=== PATIENT | female | born 1990 | race Caucasian/White ===

== ENCOUNTER 2024-01-05 18:24 | Inpatient (IN) | payer BC ==
[2024-01-05] MEDS: Lactated Ringer's 1,000 ML IV SCH (19:35)
[2024-01-05] MEDS ORDERED: Methylergonovine 0.2 MG/ML VIAL IM PRN (20:10)
[2024-01-05] MEDS ORDERED: Diphenoxylate HCl/Atropine Tablet PO PRN (20:10)
[2024-01-05] MEDS ORDERED: Lidocaine 1% (PF) 30 ML VIAL SC PRN (20:10)
[2024-01-05] MEDS ORDERED: Carboprost 250 MCG/ML AMP IM PRN (20:10)
[2024-01-05] MEDS ORDERED: Acetaminophen 500 MG TAB PO PRN (20:10)
[2024-01-05] MEDS ORDERED: Misoprostol 200 MCG TAB PR PRN (20:10)
[2024-01-05] MEDS ORDERED: Tranexamic Acid 1,000 MG/10 ML VIAL IVP PRN (20:10)
[2024-01-05] MEDS ORDERED: Promethazine HCl 25 MG/ML VIAL IM PRN ×2 (20:10→22:40)
[2024-01-05 20:12] VITALS: BMI 41.5
[2024-01-05] MEDS ORDERED: Misoprostol 100 MCG TAB VAG SCH (20:15)
[2024-01-05] MEDS ORDERED: Oxytocin 30 units/NS 500 ML 500 ML IV SCH ×2 (20:15)
[2024-01-05 20:31] LABS: Hematocrit 32.1 % (34.9-44.5); Hemoglobin 10.9 g/dL (12.0-15.5); Mean Corpuscular Hemoglobin 29.1 pg (27.0-33.0); Mean Corpuscular Volume 85.6 fL (81.6-98.3); Mean Platelet Volume 11.8 fL (7.4-10.4); Platelet Count 265 10x3/uL (150-450); RBC Distribution Width 14.7 % (11.5-14.5); Red Blood Cell (RBC) Count 3.75 10x6/uL (3.90-5.03); White Blood Cell (WBC) Count 10.7 10x3/uL (3.5-10.5)
[2024-01-05 21:01] LABS: HBsAg Index 0.15 S/CO (0-0.99); Hep B Surf Ag - L&D Non-Reactive S/CO (NonReactive)
[2024-01-05 21:02] LABS: Syphilis Antibody Nonreactive (Nonreactive); Syphilis Antibody Index 0.05 S/CO (<1.00 Non-Reactive)
[2024-01-05 21:37] LABS: ALT (SGPT) 9 U/L (8-55); AST (SGOT) 14 U/L (5-34); Albumin 2.4 g/dL (3.5-5.0); Alkaline Phosphatase 134 U/L (40-110); Anion Gap 15 mmol/L (10-20); BUN (Urea Nitrogen) 9 mg/dL (7.0-18.7); Bilirubin, Total 0.2 mg/dL (0.2-1.2); Calc. Creatinine Clearance 289 mL/min (70-130); Calcium 9.5 mg/dL (7.8-10.44); Carbon Dioxide 17 mmol/L (22-29); Chloride 107 mmol/L (98-107); Estimated GFR 123; Globulin 4.2 g/dL (2.4-3.5); Glucose 85 mg/dL (70-105); Potassium 3.8 mmol/L (3.5-5.1); Protein, Total 6.6 g/dL (6.0-8.3); Sodium 135 mmol/L (136-145)
[2024-01-05] MEDS: hydrALAZINE 20 MG/ML VIAL SLOW IVP PRN (21:49)
[2024-01-05] MEDS: Magnesium Sulfate 20 gm/500 ml 20 GM/500 ML BAG ONE (21:53)
[2024-01-05 22:03] LABS: Creatinine, Urine 146.5 mg/dL (47-110)
[2024-01-05] MEDS ORDERED: Calcium Gluc 4.6 MEQ/10 ML (100 MG/ML) SLOW IVP PRN ×2 (22:07→22:16)
[2024-01-05] MEDS ORDERED: Lorazepam 2 MG/ML VIAL SLOW IVP PRN ×2 (22:07→22:16)
[2024-01-05] MEDS ORDERED: Labetalol HCl 100 MG/20 ML VIAL SLOW IVP PRN (22:07)
[2024-01-05] MEDS ORDERED: NIFEdipine 10 MG CAP PO PRN ×2 (22:16)
[2024-01-05] MEDS: fentaNYL/Ropivacaine Epidural 100 ML ONE (22:21)
[2024-01-05] MEDS ORDERED: ePHEDrine Sulfate 50 MG/10 ML VIAL SLOW IVP PRN (22:40)
[2024-01-05] MEDS ORDERED: Moisturizing Cream (Eucerin) 113 GM JAR TOP PRN (22:40)
[2024-01-05] MEDS ORDERED: Acetaminophen 325 MG TAB PO PRN (22:40)
[2024-01-05] MEDS ORDERED: Ondansetron PF 4 MG/2 ML Vial IVP PRN (22:40)
[2024-01-05] MEDS ORDERED: Lactated Ringer's 500 ML IV PRN (22:40)
[2024-01-05] MEDS ORDERED: diphenhydrAMINE 50 MG/ML VIAL IVP PRN (22:40)
[2024-01-05] MEDS ORDERED: Naloxone HCl 0.4 mg/ml Vial IVP PRN ×2 (22:40)
[2024-01-05] MEDS ORDERED: Communication Order-Pharmacy FS SCH (22:45)
[2024-01-06] MEDS: Labetalol HCl 100 MG/20 ML VIAL SLOW IVP PRN (02:39)
[2024-01-06] MEDS: Oxytocin 30 units/NS 500 ML 500 ML IV SCH (04:07)
[2024-01-06] MEDS: Magnesium Sulfate 20 gm/500 ml 20 GM/500 ML BAG IVPB SCH (06:08)
[2024-01-06] MEDS: fentaNYL 2 mcg/Ropivacaine 0.2% Epidural 100 ML CADD EPIDURAL SCH (06:23)
[2024-01-06] MEDS ORDERED: Bicitra 30 ML UDCUP PO PRN (09:08)
[2024-01-06] MEDS ORDERED: Famotidine/PF 20 mg/2ml Vial SLOW IVP PRN (09:08)
[2024-01-06] MEDS ORDERED: Azithromycin 500 MG in Sodium Chloride 0.9% 250 ML 250 ML IVPB SCH (09:15)
[2024-01-06] MEDS: Ondansetron PF 4 MG/2 ML Vial IVP PRN (09:15)
[2024-01-06] MEDS: CEFAZOLIN 3 GM in Sodium Chloride 0.9% 100 ML IVPB SCH (09:20)
[2024-01-06] MEDS ORDERED: Naloxone HCl 0.4 mg/ml Vial IVP PRN ×2 (11:47)
[2024-01-06] MEDS ORDERED: diphenhydrAMINE 50 MG/ML VIAL IVP PRN (11:47)
[2024-01-06] MEDS ORDERED: Promethazine HCl 25 MG/ML VIAL IM PRN (11:47)
[2024-01-06] MEDS ORDERED: HYDROmorphone 0.5 MG/0.5 ML SYRINGE SLOW IVP PRN (11:47)
[2024-01-06] MEDS ORDERED: Moisturizing Cream (Eucerin) 113 GM JAR TOP PRN (11:47)
[2024-01-06] MEDS ORDERED: Naloxone HCl 0.4 mg/ml Vial IV PRN (11:47)
[2024-01-06] MEDS ORDERED: fentaNYL 50 mcg/mL 1 mL Vial SLOW IVP PRN (11:47)
[2024-01-06] MEDS ORDERED: Ondansetron PF 4 MG/2 ML Vial IVP PRN ×2 (11:47)
[2024-01-06] MEDS ORDERED: Meperidine HCl/PF 25 MG (1 mL) VIAL SLOW IVP PRN (11:47)
[2024-01-06] MEDS ORDERED: Ketorolac Tromethamine 30 MG (1 mL) VIAL IVP SCH (12:00)
[2024-01-06] MEDS ORDERED: Communication Order-Pharmacy FS SCH (12:00)
[2024-01-06] MEDS: Simethicone Chewable 80 MG TAB PO PRN (15:15)
[2024-01-06] MEDS: Ketorolac Tromethamine 30 MG (1 mL) VIAL IVP PRN (15:15)
[2024-01-06] MEDS: Misoprostol 100 MCG TAB VAG SCH (19:14)
[2024-01-06] MEDS: Lactated Ringer's 500 ML IV SCH (19:15)
[2024-01-06] MEDS: hydrALAZINE 20 MG/ML VIAL SLOW IVP SCH (19:15)
[2024-01-06] MEDS: CEFAZOLIN 2 GM VIAL ONE (19:15)
[2024-01-06] MEDS: Azithromycin 500 MG VIAL ONE (19:15)
[2024-01-06] MEDS: CEFAZOLIN 1 GM VIAL ONE (19:15)
[2024-01-06] MEDS: Dexmedetomidine 200 MCG/2 ML VIAL ONE (19:16)
[2024-01-06] MEDS: fentaNYL 50 mcg/mL 1 mL Vial ONE (19:16)
[2024-01-06] MEDS: PROPOFOL 0 ML ONE (19:16)
[2024-01-06] MEDS: Acetaminophen 325 MG TAB PO SCH (19:16)
[2024-01-06] MEDS: Morphine PF 10 MG/10 ML VIAL ONE (19:16)
[2024-01-06] MEDS: Oxytocin 10 UNITS/ML VIAL ONE (19:16)
[2024-01-06] MEDS: Ibuprofen 800 MG TAB PO SCH (19:17)
[2024-01-06] MEDS: Docusate 100 MG CAP PO SCH (20:41)
[2024-01-07] MEDS: Boostrix 0.5 ML (Tdap) VIAL (>/=7 yrs of age) IM ONE (02:48)
[2024-01-07 04:12] LABS: Hematocrit 26.6 % (34.9-44.5); Hemoglobin 8.8 g/dL (12.0-15.5); Mean Corpuscular HGB CONC 33.1 g/dL (32.0-36.0); Mean Corpuscular Hemoglobin 28.9 pg (27.0-33.0); Mean Corpuscular Volume 87.2 fL (81.6-98.3); Mean Platelet Volume 11.1 fL (7.4-10.4); Platelet Count 224 10x3/uL (150-450); RBC Distribution Width 15.5 % (11.5-14.5); Red Blood Cell (RBC) Count 3.05 10x6/uL (3.90-5.03); White Blood Cell (WBC) Count 9.7 10x3/uL (3.5-10.5)
[2024-01-07] MEDS: Ferrous Sulfate 325 MG TAB PO SCH (07:15)
[2024-01-07] MEDS: HYDROcodone/Acetaminophen 10/325 mg Tablet PO PRN (07:15)
[2024-01-07] MEDS ORDERED: hydrALAZINE 20 MG/ML VIAL SLOW IVP PRN (09:25)
[2024-01-07] MEDS ORDERED: Lanolin Ointment 7 GM TUBE TOP PRN (09:25)
[2024-01-07] MEDS: Enoxaparin 40 MG (0.4 mL) SYRINGE SC SCH (10:38)
[2024-01-07] MEDS: Prenatal Vitamin 1 TAB PO SCH ×2 (10:39)
[2024-01-07] MEDS: HYDROcodone/Acetaminophen 5/325 mg Tablet PO PRN (14:08)
[2024-01-07] MEDS: Ibuprofen 800 MG TAB PO SCH (16:11)
[2024-01-08 04:52] LABS: Hematocrit 25.9 % (34.9-44.5); Hemoglobin 8.9 g/dL (12.0-15.5)
[2024-01-09 09:30] VITALS: BP 129/80; TEMP 98.4
[2024-01-09] MEDS ORDERED: Ibuprofen 800 MG TAB PO SCH (12:00)
== END 2024-01-09 10:55 | disposition home or self-care (01) | DRG 788 ==
LOC: CSHLD/OP 18:24 → CSHLD 20:06 → CSHPP 01-07 09:23
PROVIDERS: ADMIT Obstetrics & Gynecology; ATTEND Obstetrics & Gynecology
PROC: 10D00Z1 Extraction of Products of Conception, Low, Open Approach (ICD-10-PCS; principal; 2024-01-06)
DX: O42.02 Full-term premature rupture of membranes, onset of labor within 24 hours of rupture (principal); Z3A.38 38 weeks gestation of pregnancy; Z37.0 Single live birth; O62.1 Secondary uterine inertia; O36.63X0 Maternal care for excessive fetal growth, third trimester, not applicable or unspecified; O99.214 Obesity complicating childbirth; O14.14 Severe pre-eclampsia complicating childbirth; O99.02 Anemia complicating childbirth; D50.0 Iron deficiency anemia secondary to blood loss (chronic); O34.13 Maternal care for benign tumor of corpus uteri, third trimester; D25.9 Leiomyoma of uterus, unspecified
CPT/HCPCS: 36415; 51702; 80053; 82570; 84156; 85014; 85018; 85027; 86780; 86850; 86900; 86901; 87340; 99285; J0360; J1650; J1885; J2274; J2405; J2590; J2704; J3010; J3475; J3490; J7120

== ENCOUNTER 2024-01-12 20:57 | Observation (INO) | payer BC ==
[2024-01-12] MEDS ORDERED: hydrALAZINE 20 MG/ML VIAL ONE (21:42)
[2024-01-12] MEDS ORDERED: Magnesium 2 GM/50 ML BAG (IN WATER) ONE ×2 (21:43→22:16)
[2024-01-12 21:50] LABS: #Basophils 0.06 10x3/uL (0.0-0.2); #Eosinphils 0.17 10x3/uL (0.0-0.5); %Basophils 0.7 % (0.0-2.0); %Eosinophils 2.1 % (0.0-6.0); %Lymphocytes 23.2 % (18.0-47.0); %Monocytes 4.8 % (0.0-10.0); %Neutrophils 68.8 % (40.0-75.0); Hematocrit 27.6 % (34.9-44.5); Hemoglobin 9.1 g/dL (12.0-15.5); Mean Corpuscular Hemoglobin 29.2 pg (27.0-33.0); Mean Corpuscular Volume 88.5 fL (81.6-98.3); Platelet Count 314 10x3/uL (150-450); RBC Distribution Width 15.4 % (11.5-14.5); Red Blood Cell (RBC) Count 3.12 10x6/uL (3.90-5.03); White Blood Cell (WBC) Count 8.3 10x3/uL (3.5-10.5)
[2024-01-12 22:02] LABS: ALT (SGPT) 15 U/L (8-55); AST (SGOT) 20 U/L (5-34); Albumin 2.6 g/dL (3.5-5.0); Alkaline Phosphatase 80 U/L (40-110); Anion Gap 16 mmol/L (10-20); BUN (Urea Nitrogen) 10 mg/dL (7.0-18.7); Bilirubin, Total 0.2 mg/dL (0.2-1.2); Calc. Creatinine Clearance 0 mL/min (70-130); Calcium 8.6 mg/dL (7.8-10.44); Carbon Dioxide 19 mmol/L (22-29); Chloride 109 mmol/L (98-107); Estimated GFR 122; Globulin 3.9 g/dL (2.4-3.5); Glucose 92 mg/dL (70-105); Potassium 3.5 mmol/L (3.5-5.1); Protein, Total 6.5 g/dL (6.0-8.3); Sodium 140 mmol/L (136-145)
[2024-01-12 22:45] LABS: Bilirubin Neg (Negative); Blood, Urine 150 (Negative); Clarity Clear (Clear); Glucose, Urine (Dipstick) Normal (Negative); Ketone, Urine Negative (Negative); Leukocyte 25 (Negative); Nitrite Negative (Negative); Protein, Urine (Dipstick) 30 mg/dl (Neg-Trace); Urobilinogen Normal mg/dL (Less than 2)
[2024-01-12 23:06] LABS: Bacteria/HPF Rare-Few HPF (None Seen); CAUTI Indications for Culture Pregnancy; Squamous Epithelial 0-3 HPF (0-3)
[2024-01-12 23:08] LABS: Urine Culture Reflex Yes Yes
== END 2024-01-13 00:21 | disposition admitted as inpatient to this hospital (09) ==
LOC: CSHERS 20:57 → CSHLD 23:08 → CSHERHOLD 23:27
PROVIDERS: ADMIT Obstetrics & Gynecology; ATTEND Obstetrics & Gynecology
DX: O14.95 Unspecified pre-eclampsia, complicating the puerperium (principal)
CPT/HCPCS: 80053; 81001; 85025; 87086; 93005; J0360; J3475

== ENCOUNTER 2024-01-12 22:55 | Inpatient (IN) | payer BC ==
[2024-01-12] MEDS ORDERED: Calcium Carbonate 500 MG ChewTAB PO PRN (23:32)
[2024-01-12] MEDS ORDERED: Acetaminophen 325 MG TAB PO PRN (23:32)
[2024-01-12] MEDS ORDERED: Labetalol HCl 100 MG/20 ML VIAL SLOW IVP PRN (23:38)
[2024-01-12] MEDS ORDERED: Lorazepam 2 MG/ML VIAL SLOW IVP PRN ×2 (23:38→23:57)
[2024-01-12] MEDS ORDERED: Calcium Gluc 4.6 MEQ/10 ML (100 MG/ML) SLOW IVP PRN ×2 (23:38→23:57)
[2024-01-13 00:02] LABS: Creatinine, Urine 30.73 mg/dL (47-110)
[2024-01-13] MEDS: Magnesium Sulfate 20 gm/500 ml 20 GM/500 ML BAG IVPB SCH (00:49)
[2024-01-13] MEDS: Lactated Ringer's 1,000 ML IV SCH (01:19)
[2024-01-13] MEDS ORDERED: Ibuprofen 600 MG TAB PO PRN (02:06)
[2024-01-13] MEDS: Labetalol HCl 100 MG/20 ML VIAL SLOW IVP PRN ×2 (02:45→03:14)
[2024-01-13 03:29] LABS: #Basophils 0.05 10x3/uL (0.0-0.2); #Eosinphils 0.15 10x3/uL (0.0-0.5); #Neutrophils 4.12 10x3/uL (1.5-8.4); %Basophils 0.7 % (0.0-2.0); %Eosinophils 2.2 % (0.0-6.0); %Lymphocytes 30.4 % (18.0-47.0); %Monocytes 4.5 % (0.0-10.0); %Neutrophils 61.8 % (40.0-75.0); Hematocrit 30.2 % (34.9-44.5); Hemoglobin 9.7 g/dL (12.0-15.5); Mean Corpuscular HGB CONC 32.1 g/dL (32.0-36.0); Mean Corpuscular Hemoglobin 29.9 pg (27.0-33.0); Mean Corpuscular Volume 93.2 fL (81.6-98.3); Mean Platelet Volume 10.2 fL (7.4-10.4); Platelet Count 280 10x3/uL (150-450); RBC Distribution Width 15.6 % (11.5-14.5); Red Blood Cell (RBC) Count 3.24 10x6/uL (3.90-5.03); White Blood Cell (WBC) Count 6.7 10x3/uL (3.5-10.5)
[2024-01-13 03:51] LABS: ALT (SGPT) 17 U/L (8-55); AST (SGOT) 19 U/L (5-34); Albumin 2.5 g/dL (3.5-5.0); Alkaline Phosphatase 78 U/L (40-110); Anion Gap 15 mmol/L (10-20); BUN (Urea Nitrogen) 8 mg/dL (7.0-18.7); Bilirubin, Total 0.2 mg/dL (0.2-1.2); Calc. Creatinine Clearance 0 mL/min (70-130); Calcium 8.5 mg/dL (7.8-10.44); Carbon Dioxide 18 mmol/L (22-29); Chloride 111 mmol/L (98-107); Estimated GFR 121; Globulin 3.6 g/dL (2.4-3.5); Glucose 91 mg/dL (70-105); Potassium 3.4 mmol/L (3.5-5.1); Protein, Total 6.1 g/dL (6.0-8.3); Sodium 141 mmol/L (136-145)
[2024-01-13] MEDS: Labetalol HCl 200 MG TAB PO SCH ×2 (08:06→14:29)
[2024-01-13] MEDS: Potassium Chloride 20 MEQ TAB PO SCH (08:06)
[2024-01-13] MEDS: hydrALAZINE 20 MG/ML VIAL ONE (17:26)
[2024-01-13] MEDS ORDERED: hydrALAZINE 20 MG/ML VIAL SLOW IVP PRN ×2 (17:45)
[2024-01-13] MEDS: NIFEdipine XL 30 MG ER.TAB PO SCH (17:58)
[2024-01-14] MEDS: NIFEdipine XL 30 MG ER.TAB PO SCH (08:52)
[2024-01-15 00:58] VITALS: TEMP 98.3
[2024-01-15] MEDS: NIFEdipine XL 30 MG ER.TAB PO SCH (08:35)
[2024-01-15 08:36] VITALS: BP 130/88
== END 2024-01-15 10:00 | disposition home or self-care (01) | DRG 776 ==
LOC: CSHLD/OP 22:55 → CSHLD 23:24 → OBSVTOIN 23:25 → CSHLD 23:28 → UNDOADMOB 23:28 → CSHPP 01-14 11:15
PROVIDERS: ADMIT Obstetrics & Gynecology; ATTEND Obstetrics & Gynecology
DX: O14.15 Severe pre-eclampsia, complicating the puerperium (principal); Z83.3 Family history of diabetes mellitus; Z82.49 Family history of ischemic heart disease and other diseases of the circulatory system
CPT/HCPCS: 36415; 80053; 81001; 82570; 84156; 85025; 87086; 93005; 96374; 96375; 96376; 99285; J0360; J3475; J7120